=== PATIENT | female | born 1975 | race African-American/Black ===

== ENCOUNTER 2017-06-16 22:15 | Emergency (ER) | payer MEDICAID ==
[~2017-06-16] VITALS: Ht 170.2 cm; Wt 100.0 kg
[~2017-06-16 22:15] MED LIST: DULO20CA30 PO; OLAN5Z PO
[2017-06-16 22:24] VITALS: BP 130/68
== END 2017-06-16 23:08 | disposition left against medical advice (07) ==
LOC: EMS 22:18
DX: R52 Pain, unspecified (principal); G89.29 Other chronic pain; Z53.21 Procedure and treatment not carried out due to patient leaving prior to being seen by health care provider